=== PATIENT | female | born 1995 | race Hispanic/Latino ===

== ENCOUNTER 2018-02-09 22:48 | Emergency (ER) | payer MEDICAID, SELFPAY ==
--- NOTE | 2018-02-10 11:25 | CT ---
PRELIMINARY REPORT/[facility]/EMERGENTY AFTER-HOURS PROCEDURE CT Cervical Spine Without Intravenous Contrast CLINICAL HISTORY: 22 years old, female; Injury or trauma; Fall; Initial encounter; Abrasion; Patient HX: , F22 presente d to ed C/O r sided HUBBARD, r sided neck pain, and hearing changes to r ear S/P fall while walking down t he stairs next to her house. Pt reports +loc; Additional info: pt unable to remove piercings TECHNIQUE: Axial computed tomography images of the cervical spine without intravenous contrast. Coronal and sagi ttal reformatted images were created and reviewed. COMPARISON: No relevant prior studies available. FINDINGS: Vertebrae: No acute fracture or malalignment. Straightening of the normal cervical lordosis. Discs/spinal canal/neural foramina: No spinal canal or neuroforaminal stenosis. Soft tissues: No acute findings. Multiple bilateral small and prominent cervical lymph nodes. Lung apices: No acute findings. IMPRESSION: No acute fracture. Thank you for allowing us to participate in the care of your patient. Dictated and Authenticated by: Otf Carson MD 02/10/2018 3:22 AM Central Time ([place] & [place]) FINAL REPORT CERVICAL SPINE CT WITHOUT CONTRAST: Date: 02/10/18 COMPARISON: None. HISTORY: Trauma, pain. FINDINGS: I agree with the preliminary report given by Rocky. The C1 ring is intact. The occipital condyles, dens, C1-2 articulation, craniocervical junction, cerv icothoracic junction, and atlantoaxial interspace appear grossly unremarkable. Cervical vertebral bod y height and alignment is grossly unremarkable with no acute fracture or evidence of dislocation. Nina ged lung apices are unremarkable. Incidental note is made of diffuse enlargement of the thyroid gland. Multiple nonspecific mildly prom inent lymph nodes are noted in the posterior triangle and Level IIA bilaterally. IMPRESSION: 1. No acute osseous abnormality. 2. Diffuse enlargement of the thyroid gland with nonspecific diffuse mild carly prominence within th e neck. Recommend follow-up thyroid ultrasound on a nonemergent basis. Nonspecific carly prominence should be further evaluated as clinically warranted. CODE T. POS: [facility]
--- NOTE | 2018-02-10 11:27 | CT ---
PRELIMINARY REPORT/[facility]/EMERGENTY AFTER-HOURS PROCEDURE CT Head Without Intravenous Contrast CLINICAL HISTORY: 22 years old, female; Injury or trauma; Fall; Initial encounter; Abrasion; Not specified; Patient HX: , F22 presented to ed C/O r sided HUBBARD, r sided neck pain, and hearing changes to r ear S/P fall while walking down the stairs next to her house. Pt reports +loc TECHNIQUE: Axial computed tomography images of the head/brain without intravenous contrast. COMPARISON: No relevant prior studies available. FINDINGS: Brain: No hemorrhage. No significant white matter disease. No edema. Ventricles: No ventriculomegaly. Bones/joints: No acute fracture. Soft tissues: No acute findings. Sinuses: No significant air fluid levels. Mastoid air cells: No significant fluid. IMPRESSION: No acute findings. Thank you for allowing us to participate in the care of your patient. Dictated and Authenticated by: Otf Carson MD 02/10/2018 3:15 AM Central Time ([place] & [place]) FINAL REPORT HEAD CT WITHOUT CONTRAST: Date: 02/10/18 COMPARISON: 05/16/10. HISTORY: Headache and neck pain with loss of consciousness, trauma. FINDINGS: I agree with the preliminary report given by Rocky. The imaged paranasal sinuses and mastoid air cells are well aerated. There is no displaced calvarial fracture. No intracranial hemorrhage, midline shif t, mass effect, or ventricular enlargement. IMPRESSION: No acute findings. POS: [facility]
== END 2018-02-10 03:41 | disposition home or self-care (01) ==
LOC: ERS 22:48
DX: O9A.211 Injury, poisoning and certain other consequences of external causes complicating pregnancy, first trimester (principal); S05.31XA Ocular laceration without prolapse or loss of intraocular tissue, right eye, initial encounter; S00.83XA Contusion of other part of head, initial encounter; O99.331 Smoking (tobacco) complicating pregnancy, first trimester; F17.210 Nicotine dependence, cigarettes, uncomplicated; W10.9XXA Fall (on) (from) unspecified stairs and steps, initial encounter
CPT/HCPCS: 70450; 72125

== ENCOUNTER 2018-03-01 21:16 | Emergency (ER) | payer SELFPAY ==
[2018-03-01 21:39] LABS: Bilirubin Negative (Negative); Blood, Urine Moderate (Negative); Clarity CLOUDY (Clear); Glucose, Urine (Dipstick) Negative (Negative); Hyaline Casts/LPF 0-3 HYALINE CAST LPF (0-3 Hyaline); Leukocyte Large (Negative); Nitrite Negative (Negative); Pathc Cast-AUWi Flag 0.72 (0-2.49); Protein, Urine (Dipstick) 100 mg/dL (Neg-Trace); RBC/HPF GREATER THAN 50-TNTC HPF (0-3); Specific Gravity, Urine 1.019 (1.002-1.036); Squamous Epithelial None Seen HPF (0-3); Urobilinogen 0.2 mg/dL (0.2-1.0); Yeast-AUWi Flag 153.8 (0-25.0); pH, Urine 6.5 (5.0-9.0)
[2018-03-01 21:45] LABS: #Lymphocytes 2.3 thou/uL (1.20-3.40); #Monocytes 0.7 thou/uL (0.11-0.59); #Neutrophils 11.6 thou/uL (1.40-6.50); %Eosinophils 0.1 % (0.0-10.0); %Lymphocytes 15.6 % (21.0-51.0); %Neutrophils 79.3 % (42.0-75.0); Hemoglobin 12.1 g/dL (12.0-16.0); Mean Corpuscular HGB CONC 34.6 g/dL (32.0-36.0); Mean Corpuscular Hemoglobin 26.7 pg (27.0-31.0); Mean Corpuscular Volume 77.3 fl (81.0-99.0); Mean Platelet Volume 7.8 fL (7.4-10.4); Platelet Count 247 thou/uL (130-400); Red Blood Cell (RBC) Count 4.54 mill/uL (4.20-5.40); White Blood Cell (WBC) Count 14.6 thou/uL (4.8-10.8)
[2018-03-01 21:49] LABS: Bacteria/HPF Rare-Few HPF (None Seen); Yeast-All Forms None Seen HPF (None Seen)
[2018-03-01 22:08] LABS: ALT (SGPT) 15 U/L (8-55); AST (SGOT) 14 U/L (5-34); Albumin 3.9 g/dL (3.5-5.0); Alkaline Phosphatase 84 U/L (40-150); Anion Gap 13 mmol/L (10-20); BUN (Urea Nitrogen) 6 mg/dL (7.0-18.7); Bilirubin, Total 0.5 mg/dL (0.2-1.2); Calc. Creatinine Clearance 0 mL/min (70-130); Calcium 9.8 mg/dL (7.8-10.44); Carbon Dioxide 22 mmol/L (22-29); Chloride 105 mmol/L (98-107); Estimated GFR-MDRD Greater than 90; Globulin 3.6 g/dL (2.4-3.5); Glucose 82 mg/dL (70-105); Lipase 6 U/L (8-78); Potassium 3.7 mmol/L (3.5-5.1); Protein, Total 7.5 g/dL (6.0-8.3); Sodium 136 mmol/L (136-145)
[2018-03-01] MEDS ORDERED: cefTRIAXone\\ROCEPHIN 1 GM VIAL ONE ×2 (22:35→22:48)
[2018-03-02] MEDS ORDERED: Morphine 4 MG/ML VIAL ONE (00:45)
--- NOTE | 2018-03-02 08:41 | ULT ---
PRELIMINARY REPORT/[facility]/EMERGENTY AFTER-HOURS PROCEDURE US Uterus, Limited EXAM DATE/TIME: Exam ordered 03/01/2018 11:28 PM CLINICAL HISTORY: 22 years old, female; Pain; Other: Back pain, pylo, dates; Gestational age or lmp: 13w3d; TECHNIQUE: Real-time ultrasound of the maternal uterus (limited) with image documentation. COMPARISON: No relevant prior studies available. FINDINGS: Fetus: Single live intrauterine gestation. [place]-rump length correlates with estimated gestational ag e of 13 weeks 2 days. Gestational age: biometry measurements are compatible with estimated gestational age of 13 week s 3 days. Position: position is breech. Heart rate: heart rate 155 beats per minute. Placenta: 2 small subchorionic hematomas, the larger of which measures 2.7 cm. Placenta is positioned maternal left and is unremarkable. Amniotic fluid: Amniotic fluid volume is subjectively normal. IMPRESSION: 1. Single live intrauterine gestation as above. 2. 2 small subchorionic hematomas, the larger of which measures 2.7 cm. Thank you for allowing us to participate in the care of your patient. Dictated and Authenticated by: Marquez Johnston MD 03/02/2018 1:26 AM Central Time ([place] & [place]) FINAL REPORT LIMITED OB ULTRASOUND: HISTORY: Pelvic pain. COMPARISON: None. TECHNIQUE: Sagittal and transverse imaging of the gravid uterus was performed. FINDINGS: This report is in agreement with the preliminary report by [facility]. Single intrauterine gestation with f etal heart tones. Gestational age by crown-rump length is 13 weeks 2 days. Two small subchorionic h emorrhages are identified. heart rate is 155 b.p.m. Cervical length is 5.2 cm. Placenta is u nremarkable and appears to be to the left near the fundus. POS: [facility]
[2018-03-04 00:51] LABS: Chlamydia by PCR Not Detected (NotDetected); GC by PCR Not Detected (NotDetected)
== END 2018-03-02 02:06 | disposition home or self-care (01) ==
LOC: ERS 21:16
DX: O23.41 Unspecified infection of urinary tract in pregnancy, first trimester (principal); O99.89 Other specified diseases and conditions complicating pregnancy, childbirth and the puerperium; R10.31 Right lower quadrant pain; O99.331 Smoking (tobacco) complicating pregnancy, first trimester; F17.210 Nicotine dependence, cigarettes, uncomplicated; Z3A.01 Less than 8 weeks gestation of pregnancy
CPT/HCPCS: 36415; 76815; 80053; 81003; 81015; 83690; 84702; 85025; 87077; 87086; 87480; 87491; 87510; 87591; 87660; 96365; 96375; J0696; J2270

== ENCOUNTER 2018-04-17 02:14 | Day surgery (SDC) | payer MEDICAID, SELFPAY ==
[2018-04-17 03:09] VITALS: BMI 32.5
[2018-04-17 04:31] LABS: Bilirubin Negative (Negative); Blood, Urine Negative (Negative); Clarity CLEAR (Clear); Glucose, Urine (Dipstick) Negative (Negative); Leukocyte Small (Negative); Nitrite Negative (Negative); Protein, Urine (Dipstick) Negative (Neg-Trace); Specific Gravity, Urine 1.007 (1.002-1.036); Urobilinogen 0.2 mg/dL (0.2-1.0); pH, Urine 7.5 (5.0-9.0)
[2018-04-17 04:47] LABS: RBC/HPF 0-3 HPF (0-3)
[2018-04-17 04:48] LABS: Bacteria/HPF None Seen HPF (None Seen); Squamous Epithelial 0-3 HPF (0-3); WBC/HPF 0-3 HPF (0-3)
--- NOTE | 2018-04-17 08:54 | PRG ---
DATE OF SERVICE: 04/17/2018 PRIMARY OB: Dr. Jan Garibay CHIEF COMPLAINT: Spotting and abdominal pain. HISTORY OF PRESENT ILLNESS: The patient is a 22-year-old G5, P3 female with an intrauterine pregnanc y at 21 weeks and 4 days, who presented to Labor and Delivery after experiencing some spotting when s he got up to go the bathroom. She also reports she was having some lower abdominal pains that have b een infrequent, but present. Family members were concerned and had her come in for evaluation. The patient denies any bleeding currently. She denies any fever, fall, headache, chest pain, shortness o f breath, nausea, vomiting, diarrhea, constipation. She denies any new rashes, hip problems, knee pr oblems, muscle weakness, vaginal discharge, urinary urgency or frequency. Her lower abdominal pain i s sharp in nature, seems to be more present with activity and movement. She also reports some pains that come and go, but has not felt any here. PAST MEDICAL HISTORY: Negative. PAST SURGICAL HISTORY: Noncontributory. OBSTETRIC HISTORY: She has had 3 term deliveries. SOCIAL HISTORY: Denies drug, alcohol or tobacco use. ALLERGIES: No known drug allergies. MEDICATIONS: vitamins. OB LABS: Unavailable at the time of dictation. REVIEW OF SYSTEMS: Per HPI. PHYSICAL EXAMINATION: VITAL SIGNS: Blood pressure is 107/62, heart rate has been in the 100s up to the 130s transiently, r espiratory rate 18, satting 97-99% on room air, temperature 98.9. After evaluation and the patient s eemed more relaxed and calm heart rate seemed to settle out in the 1-teens. GENERAL: She appears to be in no acute distress. She is alert and oriented, cooperative and pleasan t to interact with. HEENT: Head is normocephalic, atraumatic. LUNGS: Clear to auscultation bilaterally. HEART: Regular rate and rhythm. ABDOMEN: Soft, gravid. She has some mild tenderness to palpation. EXTREMITIES: Nontender, nonedematous. CERVICAL EXAM: She is closed, thick and high, no blood visualized. The patient did, however, have s ignificant amount of discharge. heart tones are dopplered in the 140s to 155. Urinalysis was performed, noted to be negative for protein, glucose, ketones, blood, nitrites. She h ad small leukocyte esterase, no RBCs, no white blood cells, no squamous cells, no bacteria seen. P[employer]ER- 3 was ordered and collected and found to be positive for Rosa. These final results came back afte r the patient went home. We will follow up with the patient with these results to evp general counsel her. ASSESSMENT AND PLAN: The patient is a 22-year-old female with an intrauterine at 21 weeks, presenting with isolated spotting and abdominal pain. She has no evidence of labor at this time or acute bleeding. The patient does have a PAP[employer] M[employer]INE TENDER-3 test suggesting a candidal yeast infection for which we will evp general counsel her to take [id number] Monistat as directed. Dr. Garibay was notified last night w ith the patient's presentation and we will be contacting him with the lab results as well.
--- NOTE | 2018-04-17 09:23 | PDOC.EVN ---
Event Note - Event Note Event Note: POST DISCHARGE NOTE: I was asked to follow up VP3 results. VP3 just checked and positive only for bruno. Will notify Primary MD (Lani) of results.
== END 2018-04-17 04:10 | disposition home or self-care (01) ==
LOC: L&D/OP 02:14
PROVIDERS: ATTEND Obstetrics & Gynecology
DX: O26.852 Spotting complicating pregnancy, second trimester (principal); Z3A.21 21 weeks gestation of pregnancy
CPT/HCPCS: 81001; 87480; 87510; 87660; 99284

== ENCOUNTER 2018-08-07 23:11 | Emergency (ER) | payer OTHER, SELFPAY ==
[2018-08-07] MEDS ORDERED: predniSONE 20 MG TAB ONE (23:30)
== END 2018-08-07 23:42 | disposition home or self-care (01) ==
LOC: ERS 23:11
DX: L25.9 Unspecified contact dermatitis, unspecified cause (principal); Z79.899 Other long term (current) drug therapy
CPT/HCPCS: 99282; J7506